=== PATIENT | female | born 1995 | race Caucasian/White ===

== ENCOUNTER 2017-06-01 07:18 | Day surgery (SDC) | payer BC ==
[~2017-06-01 07:18] MED LIST: DEXAMETHASONE SOD PHOSPHATE INJ 4 MG/1 ML VIAL ONE; FENTANYL CITRATE INJ/PF 100 MCG/2 ML AMPUL ONE; GLYCOPYRROLATE INJ 0.4 MG/2 ML VIAL ONE; LIDOCAINE 2% INJ-PF (20 MG/ML) 10 ML AMPUL ONE; MIDAZOLAM 2 MG/2 ML INJ ONE; ONDANSETRON HCL INJ/PF 4 MG/2 ML SDV ONE; PROPOFOL INJ 200 MG/20 ML VIAL IV ONE; SUCCINYLCHOLINE CHLORIDE INJ 200 MG/10 ML VIAL ONE
[2017-06-01] MEDS ORDERED: BUPIVACAINE HCL 0.5%-EPI 1:200000 INJ/PF 30 ML VIAL ONE (08:25)
[2017-06-01] MEDS ORDERED: OXYCODONE-ACETAMINOPHEN 5-325 MG TABLET ONE (09:52)
--- NOTE | 2017-06-02 13:33 | SURGICARE OPERATIVE REPORT E ---
[facility] Operative Report NAME: DACIA REYNA AGE: 22Y DATE OF SURGERY: 06/01/2017 ROOM: PREOPERATIVE DIAGNOSES: 1. Recurrent acute tonsillitis. 2. Chronic tonsillitis. 3. Tonsillar hypertrophy. POSTOPERATIVE DIAGNOSES: 1. Recurrent acute tonsillitis. 2. Chronic tonsillitis. 3. Tonsillar hypertrophy. OPERATION PERFORMED: Bilateral tonsillectomy, age greater than 12. SURGEON: JEWEL CAVANAUGH D.O. ANESTHETIC: General endotracheal tube. ANESTHESIA STAFF: ERICK ASTORGA CRNA. ESTIMATED BLOOD LOSS: 5 mL. FLUID: 550 mL. COMPLICATIONS: None. DRAINS: None. SPONGE COUNT: Verified. MATERIALS FORWARDED SPECIMEN: Left and right tonsillar tissue. FINDINGS: 1. The tonsils were noted to be 3+ in size bilaterally, were cryptic in nature, and were with tonsillar debris present bilaterally. 2. The soft palatal tissues were redundant in nature and the uvula was thickened in appearance. INDICATIONS: This is a 22-year-old white female who was seen and evaluated in the [facility]. The patient had been referred for a chief complaint of a longstanding history of multiple episodes of acute tonsillitis each year, treated with antibiotics over the years. The patient also complained of chronic tonsillitis symptoms over the years with history consistent with keratosis pharyngeus. The patient clinically was also noted to have tonsillar hypertrophy bilaterally. After extensive discussions with the patient, recommendations and plan was made to proceed with a tonsillectomy. The procedure and its risks and complications were all discussed in detail with the patient. She voiced understanding of the described treatment plan, agreed to proceed, and consent was obtained. PROCEDURE: The patient was taken to the main operating room and placed on the operating room table in the supine position. Appropriate monitors were placed. Using mask and IV access, general anesthesia was induced. The patient was next transorally intubated without difficulty. The patient was rotated 90 degrees and positioned for tonsil surgery. The patient's lips, teeth, tongue and inside of the mouth were inspected and noted to be without defects. There was a mouth gag inserted. It was opened, and the patient was placed into suspension. There was a soft catheter placed through the patient's nose that was used to suspend the soft palate. Findings are noted above. Marcaine with epinephrine was used as local anesthetic at the silas-tonsillar tissues bilater. At this point, the plasma knife was used to dissect and remove tonsillar tissue on each side. This device was also used to provide adequate hemostasis. Saline irritation was performed and suctioned. There was adequate hemostasis noted. The soft catheter was next released and removed from the patient's nose. The mouth gag was removed from the patient's mouth without difficulty. There was no damage to the lips, teeth, tongue, gums, or inside of the mouth. The patient was then returned to the anesthesia staff and was allowed to emerge from general anesthesia. The patient was extubated in the main operating room and was then transported to the post-anesthesia recovery unit in stable condition. There were no complications. DICTATING PHYSICIAN: JEWEL CAVANAUGH D.O. [id number] PHY#: [id number] ID: [id number] JOB#: [id number] ACCT: [id number] cc:JEWEL CAVANAUGH D.O. > MTDJerod
== END 2017-06-01 10:54 | disposition home or self-care (01) ==
LOC: SC 07:18
PROVIDERS: ATTEND Otolaryngology
PROC: 0CTPXZZ Resection of Tonsils, External Approach (ICD-10-PCS; principal; 2017-06-01 08:15)
DX: J35.01 Chronic tonsillitis (principal); J03.01 Acute recurrent streptococcal tonsillitis; J45.909 Unspecified asthma, uncomplicated; Z87.891 Personal history of nicotine dependence; Z79.51 Long term (current) use of inhaled steroids
CPT/HCPCS: 88304 ×2; 42826; J2250; J3490 ×2; J1100; J3010; J0330; J2405; J2704; 170

== ENCOUNTER 2017-06-05 07:26 | Emergency (ER) | payer BC ==
[2017-06-05] MEDS ORDERED: ONDANSETRON HCL INJ/PF 4 MG/2 ML SDV IV ONE (08:23)
[2017-06-05] MEDS ORDERED: NORMAL SALINE 1000 ML 1,000 ML IV ONE ×2 (08:23→09:40)
--- NOTE | 2017-06-05 08:29 | ER Document Report ---
ED General - General Chief Complaint: Vomiting Stated Complaint: THROAT PAIN AND VOMITING Time Seen by Provider: 06/05/17 08:10 TRAVEL OUTSIDE OF THE [place] IN LAST 30 DAYS: No - HPI Notes: Pt is a 22yo female who presents to the ED c/o sore throat, n/v, decreased oral intake x1 day. Pt states that she had a tonsilectomy on june 01, 4 days ago. pt states that the pain has somewhat increased over the last day. Pt was given oxycodone and a lidocaine spray to use for pain control. Pt is currently voluntarily non-verbal bc of pain. Pt states that she has been having trouble keeping liquids down bc of the nausea. The sore throat is b/l and not one side over the other. Patient denies any IV drug use. Denies any other recent illness. Patient states that she is allergic to Augmentin, but that just causes a GI upset. No other concerns or complaints at this time. Denies any headache, fever, neck pain, URI, chest pain, palpitations, syncope, cough, shortness of breath, wheeze, dyspnea, abdominal pain, nausea/vomiting/diarrhea, urinary retention, dysuria, hematuria, or rash. - Related Data Allergies/Adverse Reactions: clavulanic acid [From Augmentin] Adverse Reaction (Intermediate, Verified 07:31) Vomiting amoxicillin [From Augmentin] Adverse Reaction (Verified 06/05/17 07:31) Vomiting Past Medical History - Social History Smoking Status: Never Smoker Chew tobacco use (# tins/day): No Frequency of alcohol use: None Drug Abuse: None Family History: Reviewed & Not Pertinent Patient has suicidal ideation: No Patient has homicidal ideation: No - Past Medical History Cardiac Medical History: Denies: Hx Heart Attack, Hx Hypertension Pulmonary Medical History: Reports: Hx Asthma - EXERCISE INDUCED ASTHMA LAST TREATED 1 YEAR AGO Neurological Medical History: Denies: Hx Cerebrovascular Accident, Hx Seizures Renal/ Medical History: Denies: Hx Peritoneal Dialysis GI Medical History: Denies: Hx Hepatitis, Hx Hiatal Hernia, Hx Ulcer Infectious Medical History: Denies: Hx Hepatitis Past Surgical History: Reports: Hx Tonsillectomy. Denies: Hx Hysterectomy, Hx Mastectomy, Hx Open Heart Surgery, Hx Pacemaker Review of Systems - Review of Systems Notes: REVIEW OF SYSTEMS: CONSTITUTIONAL : Denies fever, chills, or sweats. Denies recent illness. EENT: see hpi. no eye complaints CARDIOVASCULAR: Denies chest pain. Denies palpitations or racing or irregular heart beat. RESPIRATORY: Denies cough, cold, or chest congestion. Denies shortness of breath, difficulty breathing, or wheezing. GASTROINTESTINAL: see hpi GENITOURINARY: Denies difficulty urinating, painful urination, burning, frequency, blood in urine, or discharge. MUSCULOSKELETAL: Denies back or neck pain or stiffness. Denies joint pain or swelling. SKIN: Denies rash, lesions or sores. NEUROLOGICAL: Denies confusion or altered mental status. Denies passing out or loss of consciousness. Denies dizziness or lightheadedness. Denies headache. Denies weakness or paralysis or loss of use of either side. Denies problems with gait or speech. Denies sensory loss, numbness, or tingling. ALL OTHER SYSTEMS REVIEWED AND NEGATIVE. Dictation was performed using [employer] voice recognition software Physical Exam - Vital signs Vitals: Temp Pulse Resp BP Pulse Ox 97.6 F 94 20 131/84 H 96 06/05/17 07:29 06/05/17 07:29 06/05/17 07:29 06/05/17 07:29 06/05/17 07:29 Notes: PHYSICAL EXAMINATION: GENERAL: Well-appearing, well-nourished and in no acute distress. A&Ox4 HEAD: Atraumatic, normocephalic. EYES: Pupils equal round and reactive to light, extraocular movements intact, sclera anicteric, conjunctiva are normal. ENT: EAC clear b/l. TM's intact b/l without erythema, fluid, or perforation. Nares patent and without discharge. oropharynx mild erythema noted without exudates. Tonsils absent with noted recent surgical findings (empty pockets, cauterized areas noted), no exudates or unilateral swelling. No palatine shift. Uvula midline. No tongue protrusion. Moist mucous membranes. No sinus tenderness. NECK: Normal range of motion, supple without lymphadenopathy. No rigidity/ meningismus. LUNGS: Breath sounds clear to auscultation bilaterally and equal. No wheezes rales or rhonchi. HEART: Regular rate and rhythm without murmurs, rubs, gallops. ABDOMEN: Soft, nontender, nondistended abdomen. No guarding, no rebound. No masses appreciated. Normal bowel sounds present. No CVA tenderness bilaterally. Musculoskeletal: FROM to passive/active. Strength 5+/5. Extremities: No cyanosis, clubbing, or edema b/l. Peripheral pulses 2+. Capillary refill less than 3 seconds. NEUROLOGICAL: Cranial nerves grossly intact. Normal speech, normal gait. Normal sensory, motor exams PSYCH: Normal mood, normal affect. SKIN: Warm, Dry, normal turgor, no rashes or lesions noted. Course - Re-evaluation Re-evalutation: 06/05/17 08:32 Patient is an afebrile, well-hydrated, 22-year-old female who presents the ED with a sore throat, nausea/vomiting status post tonsillectomy 4 days ago. I did speak with Dr. Cavanaugh who states that this is normal status post tonsillectomy and that the patient was very well educated on her symptoms and had a treat. He does recommend fluids, Zofran, and Decadron at this time with being sent home with an antinausea medication. He does not believe there is any other significant emergency at this time. He states that imaging is not warranted at this time. 06/05/17 10:29 Patient is verbalizing some words now has the pain has somewhat improved after the Decadron and Toradol. Patient is tolerating p.o. and has not vomited while in the ED. Again reviewed instructions per Dr. Cavanaugh for patient to take her at home pain regimen. Low suspicion for any meningitis, sepsis, peritonsillar/ pharyngeal abscess, respiratory compromise, Harjit's, or other emergent systemic condition at this time. Patient is aware this condition can change from initial presentation and she needs to monitor symptoms closely. I will send her home with a prescription for Zofran. Conservative measures otherwise for symptoms. Recheck with your PCM in 3-5 days. Consider follow-up with ENT for ongoing/worsening symptoms as well. Return to the ED with any worsening/ concerning symptoms otherwise as reviewed in discharge. Patient is in agreement. - Vital Signs Vital signs: Temp Pulse Resp BP Pulse Ox 97.2 F 74 16 127/59 H 100 06/05/17 11:35 06/05/17 11:35 06/05/17 11:35 06/05/17 11:35 06/05/17 11:35 - Laboratory Result Diagrams: 06/05/17 08:44 06/05/17 08:44 Laboratory results interpreted by me: 06/05/17 06/05/17 08:44 08:44 WBC 11.9 H MCV 77 L MCH 24.9 L RDW 15.5 H Seg Neutrophils % 80.5 H Lymphocytes % 11.9 L Absolute Neutrophils 9.5 H BUN 5 L Direct Bilirubin 0.5 H Total Protein 9.1 H Discharge - Discharge Clinical Impression: Post-tonsillectomy pain Nausea and vomiting Qualifiers: Vomiting type: unspecified Vomiting Intractability: non-intractable Qualified Code(s): R11.2 - Nausea with vomiting, unspecified Condition: Stable Disposition: HOME, SELF-CARE Instructions: Antinausea Medication ([facility]), Intravenous (IV) Fluids ([facility]), Vomiting ([facility]) Additional Instructions: Maintain adequate fluid intake Take meds as directed use throat spray and take pain medication as prescribed/directed by Dr. Cavanaugh. tylenol/ibuprofen as needed F/u: with your PCM in 3-5 days for a recheck Consider consult with ENT for ongoing/worsening symptoms Return to the ED with any fever, worsening pain, chest pain, neck pain/stiffness , shortness of breath, cough, drooling, trouble swallowing/breathing, abdominal pain, n/v/d, rash, or worsening/concerning symptoms otherwise. Prescriptions: Ondansetron [Zofran Odt 4 mg Tablet] 1 - 2 tab PO Q4H PRN #15 tab.rapdis PRN Reason: For Nausea/Vomiting Forms: Elevated Blood Pressure Referrals: JEWEL CAVANAUGH DO [ASSOCIATE] - Follow up as needed
[2017-06-05 09:05] LABS: ABSOLUTE BASOPHILS # (AUTO) 0.1 10^3/uL (0.0-0.2); ABSOLUTE EOSINOPHILS # (AUTO) 0.1 10^3/uL (0.0-0.6); ABSOLUTE LYMPHOCYTES (AUTO) 1.4 10^3/uL (0.5-4.7); ABSOLUTE MONOCYTES (AUTO) 0.8 10^3/uL (0.1-1.4); ABSOLUTE NEUT (AUTO) 9.5 10^3/uL (1.7-8.2); BASOPHILS % (AUTO) 0.5 % (0-2); EOSINOPHILS % (AUTO) 0.6 % (0-6); HEMATOCRIT 38.5 % (36.0-47.0); HEMOGLOBIN 12.5 g/dL (12.0-15.5); LYMPHOCYTES % (AUTO) 11.9 % (13-45); MEAN CORPUSCULAR HEMOGLOBIN 24.9 pg (27.0-33.4); MEAN CORPUSCULAR HGB CONC 32.5 g/dL (32.0-36.0); MEAN CORPUSCULAR VOLUME 77 fl (80-97); MONOCYTES % (AUTO) 6.5 % (3-13); RED BLOOD COUNT 5.02 10^6/uL (3.72-5.28); RED CELL DISTRIBUTION WIDTH 15.5 % (11.5-14.0); SEGMENTED NEUTROPHILS % (AUTO) 80.5 % (42-78); WHITE BLOOD COUNT 11.9 10^3/uL (4.0-10.5)
[2017-06-05 09:20] LABS: ALANINE AMINOTRANSFERASE 24 U/L (9-52); ALBUMIN 4.8 g/dL (3.5-5.0); ALKALINE PHOSPHATASE 78 U/L (38-126); ANION GAP 16 (5-19); ASPARTATE AMINO TRANSFERASE 23 U/L (14-36); BILIRUBIN,DIRECT 0.5 mg/dL (0.0-0.4); BILIRUBIN,TOTAL 0.7 mg/dL (0.2-1.3); BLOOD UREA NITROGEN 5 mg/dL (7-20); CALCIUM 9.7 mg/dL (8.4-10.2); CARBON DIOXIDE 22 mmol/L (22-30); CHLORIDE 103 mmol/L (98-107); CREATININE RESULT 0.54 mg/dL (0.52-1.25); GLUCOSE 84 mg/dL (75-110); SODIUM 140.6 mmol/L (137-145); TOTAL PROTEIN 9.1 g/dL (6.3-8.2)
[2017-06-05] MEDS ORDERED: KETOROLAC TROMETHAMINE INJ/PF 30 MG/1 ML SDV IV ONE (10:22)
[2017-06-05] MEDS ORDERED: DEXAMETHASONE SOD PHOS INJ 10 MG/1 ML VIAL IM ONE (10:57)
[2017-06-05 11:41] VITALS: BP 127/59
== END 2017-06-05 11:41 | disposition home or self-care (01) ==
LOC: ER 07:26
DX: G89.18 Other acute postprocedural pain (principal); J02.9 Acute pharyngitis, unspecified; R11.2 Nausea with vomiting, unspecified; Z98.890 Other specified postprocedural states
CPT/HCPCS: 99283; 96372; 96361; 96374; 96375; 36415; 85025; 80053; J1885; J2405; J7030; J1100

== ENCOUNTER 2017-08-10 18:48 | Emergency (ER) | payer BC ==
[2017-08-10] MEDS ORDERED: ONDANSETRON 4 MG TAB.RAPDIS PO ONE (20:13)
[2017-08-10] MEDS ORDERED: HYDROCODONE/ACETAMINOPHEN 5-325 MG TABLET PO ONE (20:13)
--- NOTE | 2017-08-10 20:14 | ER Document Report ---
ED Medical Screen (RME) - General Chief Complaint: Abdominal Pain Stated Complaint: PELVIC PAIN Time Seen by Provider: 08/10/17 20:00 Mode of Arrival: Ambulatory Information source: Patient Notes: 22-year-old female history of ovarian cysts presents with complaints of 2 month duration of intermittent right lower quadrant pain. Patient denies any fevers or chills I have greeted and performed a rapid initial assessment of this patient. A comprehensive ED assessment and evaluation of the patient, analysis of test results and completion of the medical decision making process will be conducted by additional ED providers. PHYSICAL EXAMINATION: GENERAL: Well-appearing, well-nourished and in no acute distress. HEAD: Atraumatic, normocephalic. EYES: Pupils equal round extraocular movements intact, conjunctiva are normal. ENT: Nares patent NECK: Normal range of motion LUNGS: No respiratory distress Musculoskeletal: Normal range of motion NEUROLOGICAL: Normal speech, normal gait. PSYCH: Normal mood, normal affect. SKIN: Warm, Dry, normal turgor, no rashes or lesions noted. TRAVEL OUTSIDE OF THE [place] IN LAST 30 DAYS: No - Related Data Allergies/Adverse Reactions: clavulanic acid [From Augmentin] Adverse Reaction (Intermediate, Verified 18:49) Vomiting amoxicillin [From Augmentin] Adverse Reaction (Verified 08/10/17 18:49) Vomiting Home Medications: Current Home Medications Lorazepam [Ativan 0.5 mg Tablet] 0.5 mg PO Q4 PRN 08/10/17 [History] Past Medical History - Social History Chew tobacco use (# tins/day): No Frequency of alcohol use: Occasional Drug Abuse: None - Past Medical History Cardiac Medical History: Denies: Hx Heart Attack, Hx Hypertension Pulmonary Medical History: Reports: Hx Asthma - EXERCISE INDUCED ASTHMA LAST TREATED 1 YEAR AGO Neurological Medical History: Denies: Hx Cerebrovascular Accident, Hx Seizures Renal/ Medical History: Denies: Hx Peritoneal Dialysis GI Medical History: Denies: Hx Hepatitis, Hx Hiatal Hernia, Hx Ulcer Psychiatric Medical History: Reports: Hx Depression Infectious Medical History: Denies: Hx Hepatitis Past Surgical History: Reports: Hx Cholecystectomy, Hx Oral Surgery - wisdom surgery, Hx Tonsillectomy. Denies: Hx Hysterectomy, Hx Mastectomy, Hx Open Heart Surgery, Hx Pacemaker Physical Exam - Vital signs Vitals: Temp Pulse Resp BP Pulse Ox 98.2 F 89 18 142/91 H 100 08/10/17 19:01 08/10/17 19:01 08/10/17 19:01 08/10/17 19:01 08/10/17 19:01 Course - Vital Signs Vital signs: Temp Pulse Resp BP Pulse Ox 98.2 F 89 18 142/91 H 100 08/10/17 19:01 08/10/17 19:01 08/10/17 19:01 08/10/17 19:01 08/10/17 19:01
[2017-08-10 20:28] LABS: ABSOLUTE BASOPHILS # (AUTO) 0.1 10^3/uL (0.0-0.2); ABSOLUTE EOSINOPHILS # (AUTO) 0.1 10^3/uL (0.0-0.6); ABSOLUTE LYMPHOCYTES (AUTO) 2.1 10^3/uL (0.5-4.7); ABSOLUTE MONOCYTES (AUTO) 0.5 10^3/uL (0.1-1.4); ABSOLUTE NEUT (AUTO) 6.5 10^3/uL (1.7-8.2); BASOPHILS % (AUTO) 0.9 % (0-2); EOSINOPHILS % (AUTO) 0.6 % (0-6); HEMOGLOBIN 13.1 g/dL (12.0-15.5); LYMPHOCYTES % (AUTO) 22.4 % (13-45); MEAN CORPUSCULAR HEMOGLOBIN 25.5 pg (27.0-33.4); MEAN CORPUSCULAR HGB CONC 32.8 g/dL (32.0-36.0); MEAN CORPUSCULAR VOLUME 78 fl (80-97); MONOCYTES % (AUTO) 5.8 % (3-13); PLATELET COUNT 379 10^3/uL (150-450); RED BLOOD COUNT 5.14 10^6/uL (3.72-5.28); RED CELL DISTRIBUTION WIDTH 15.3 % (11.5-14.0); SEGMENTED NEUTROPHILS % (AUTO) 70.3 % (42-78); TOTAL CELLS COUNTED % (AUTO) 100 %; WHITE BLOOD COUNT 9.3 10^3/uL (4.0-10.5)
[2017-08-10 20:42] LABS: ALANINE AMINOTRANSFERASE 31 U/L (9-52); ALKALINE PHOSPHATASE 79 U/L (38-126); ANION GAP 13 (5-19); ASPARTATE AMINO TRANSFERASE 23 U/L (14-36); BILIRUBIN,DIRECT 0.2 mg/dL (0.0-0.4); BILIRUBIN,TOTAL 0.8 mg/dL (0.2-1.3); BLOOD UREA NITROGEN 6 mg/dL (7-20); CALCIUM 10.6 mg/dL (8.4-10.2); CARBON DIOXIDE 27 mmol/L (22-30); CHLORIDE 104 mmol/L (98-107); GLUCOSE 87 mg/dL (75-110); POTASSIUM 3.8 mmol/L (3.6-5.0); SODIUM 144.3 mmol/L (137-145); TOTAL PROTEIN 8.2 g/dL (6.3-8.2)
[2017-08-10 20:57] LABS: APPEARANCE,URINE CLEAR; BILIRUBIN,URINE NEGATIVE (NEGATIVE); COLOR,URINE YELLOW; GLUCOSE, URINE NEGATIVE (NEGATIVE); KETONES,URINE TRACE mg/dL (NEGATIVE); LEUKOCYTE ESTERASE,URINE NEGATIVE (NEGATIVE); NITRITE,URINE NEGATIVE (NEGATIVE); PROTEIN,URINE NEGATIVE (NEGATIVE); URINE SPECIFIC GRAVITY 1.008; UROBILINOGEN,URINE NEGATIVE mg/dL (<2.0)
--- NOTE | 2017-08-10 21:06 | ER Document Report ---
ED GI/ - General Chief Complaint: Abdominal Pain Stated Complaint: PELVIC PAIN Time Seen by Provider: 08/10/17 20:00 Mode of Arrival: Ambulatory Notes: Patient is a 22-year-old female comes emergency department for chief complaint of lower abdominal pain, worse in the right pelvic area, pain is been intermittent for several weeks but tonight became much more sharp. She reports a history of ovarian cysts. She denies nausea or vomiting, fever chills, dysuria, vaginal discharge. She reports some lower back discomfort as well. She denies concerns of STD. Past medical history of anxiety, medicated for this. She has had a cholecystectomy. TRAVEL OUTSIDE OF THE [place] IN LAST 30 DAYS: No - Related Data Allergies/Adverse Reactions: clavulanic acid [From Augmentin] Adverse Reaction (Intermediate, Verified 18:49) Vomiting amoxicillin [From Augmentin] Adverse Reaction (Verified 08/10/17 18:49) Vomiting Home Medications: Current Home Medications Lorazepam [Ativan 0.5 mg Tablet] 0.5 mg PO Q4 PRN 08/10/17 [History] Past Medical History - General Information source: Patient - Social History Smoking Status: Current Some Day Smoker Chew tobacco use (# tins/day): No Frequency of alcohol use: Occasional Drug Abuse: None Lives with: Family Family History: Reviewed & Not Pertinent Patient has suicidal ideation: No Patient has homicidal ideation: No - Past Medical History Cardiac Medical History: Denies: Hx Heart Attack, Hx Hypertension Pulmonary Medical History: Reports: Hx Asthma - EXERCISE INDUCED ASTHMA LAST TREATED 1 YEAR AGO Neurological Medical History: Denies: Hx Cerebrovascular Accident, Hx Seizures Renal/ Medical History: Denies: Hx Peritoneal Dialysis GI Medical History: Denies: Hx Hepatitis, Hx Hiatal Hernia, Hx Ulcer Psychiatric Medical History: Reports: Hx Depression Infectious Medical History: Denies: Hx Hepatitis Past Surgical History: Reports: Hx Cholecystectomy, Hx Oral Surgery - wisdom surgery, Hx Tonsillectomy. Denies: Hx Hysterectomy, Hx Mastectomy, Hx Open Heart Surgery, Hx Pacemaker Review of Systems - Review of Systems Constitutional: No symptoms reported EENT: No symptoms reported Cardiovascular: No symptoms reported Respiratory: No symptoms reported Gastrointestinal: See HPI Genitourinary: No symptoms reported Female Genitourinary: See HPI Musculoskeletal: No symptoms reported Skin: No symptoms reported Hematologic/Lymphatic: No symptoms reported Neurological/Psychological: No symptoms reported Physical Exam - Vital signs Vitals: Temp Pulse Resp BP Pulse Ox 98.2 F 89 18 142/91 H 100 08/10/17 19:01 08/10/17 19:01 08/10/17 19:01 08/10/17 19:01 08/10/17 19:01 Interpretation: Normal - General General appearance: Appears well, Alert In distress: None - HEENT Head: Normocephalic, Atraumatic Eyes: Normal Pupils: PERRL - Respiratory Respiratory status: No respiratory distress Chest status: Nontender Breath sounds: Normal Chest palpation: Normal - Cardiovascular Rhythm: Regular Heart sounds: Normal auscultation Murmur: No - Abdominal Inspection: Normal Distension: No distension Bowel sounds: Normal Tenderness: Nontender. No: Tender, Guarding Organomegaly: No organomegaly - Back Back: Normal, Nontender. No: Tender - Extremities General upper extremity: Normal inspection, Nontender, Normal color, Normal ROM , Normal temperature General lower extremity: Normal inspection, Nontender, Normal color, Normal ROM , Normal temperature, Normal weight bearing. No: Loren's sign - Neurological Neuro grossly intact: Yes Cognition: Normal Orientation: AAOx4 Amada Coma Scale Eye Opening: Spontaneous Amada Coma Scale Verbal: Oriented Amada Coma Scale Motor: Obeys Commands [place] Coma Scale Total: 15 Speech: Normal Motor strength normal: LUE, RUE, LLE, RLE Sensory: Normal - Psychological Associated symptoms: Normal affect, Normal mood - Skin Skin Temperature: Warm Skin Moisture: Dry Skin Color: Normal Course - Re-evaluation Re-evalutation: CBC, chemistry, urinalysis are all unremarkable. Patient has no noted abdominal tenderness on my exam. She is alert and well-appearing. Vital signs unremarkable. Discussed pelvic examination but this was declined. Ultrasound showing fluid in the cervix area. Suspect this is a cyst. Discussed with patient, advised that I could explain more about what the ultrasound shows on pelvic exam, she declines, she states she wants to go to OB/ [facility] to have additional evaluation, I feel this is appropriate on request because she will likely need to follow-up with [facility] regardless especially if there is an abnormality with the cervix that potentially needs to be managed. Patient states that she will definitely go to [facility] if she gets referral, referral was given. Discussed return precautions. Patient states understanding and agreement. - Vital Signs Vital signs: Temp Pulse Resp BP Pulse Ox 97.6 F 57 L 18 121/56 L 100 08/10/17 23:55 08/10/17 23:55 08/10/17 23:55 08/10/17 23:55 08/10/17 23:55 - Laboratory Result Diagrams: 08/10/17 20:18 08/10/17 20:18 Laboratory results interpreted by me: 08/10/17 08/10/17 08/10/17 20:18 20:18 20:37 MCV 78 L MCH 25.5 L RDW 15.3 H BUN 6 L Calcium 10.6 H Urine Ketones TRACE H Discharge - Discharge Clinical Impression: Lower abdominal pain Condition: Stable Disposition: HOME, SELF-CARE Additional Instructions: Your laboratory workup does not show any concerning abnormality's, your test is negative. Your ultrasound is normal except for unidentified fluid in the cervix. Please follow-up closely with [facility] (see and call referral) to have additional evaluation and management. Return if you worsen including severe pain, fever, vomiting, or any other concerning symptoms. Prescriptions: Ketorolac Tromethamine [Toradol 10 mg Tablet] 10 mg PO Q8HP PRN #24 tablet PRN Reason: Referrals: [facility] [Provider Group] - 08/13/17
--- NOTE | 2017-08-10 21:46 | RADIOLOGY REPORT (SQ) ---
EXAM DESCRIPTION: U/S NON OB PEL TV W/DOPPLER COMPLETED DATE/TIME: 08/10/2017 9:34 pm REASON FOR STUDY: RLQ pain, hx ovarian cysts COMPARISON: None. TECHNIQUE: Dynamic and static grayscale images acquired of the pelvis via transvaginal approach and recorded on PACS. Additional selected color Doppler and spectral images recorded. LIMITATIONS: None. FINDINGS: UTERUS: Contour normal. No mass. ENDOMETRIAL STRIPE: No focal or generalized thickening. No masses. CERVIX: Fluid within the cervix. RIGHT OVARY: Not visualized LEFT OVARY: Not visualized FREE FLUID: None noted. OTHER: No other significant finding. MEASUREMENTS: UTERUS: 6.5 x 2.7 x 3.6 cm ENDOMETRIAL STRIPE: 8 mm RIGHT OVARY: Not visualized. LEFT OVARY: Not visualized. IMPRESSION: Fluid in the cervix. Otherwise normal as visualized. TECHNICAL DOCUMENTATION: JOB ID: [id number] [employer]- All Rights Reserved
[2017-08-10] MEDS ORDERED: HYDROCODONE/ACETAMINOPHEN 5-325 MG (6 TAB/ER DISP) PO PRN (23:45)
[2017-08-11 00:07] VITALS: BP 121/56
== END 2017-08-11 00:09 | disposition home or self-care (01) ==
LOC: ER 18:48
DX: R10.30 Lower abdominal pain, unspecified (principal); R10.2 Pelvic and perineal pain; F17.200 Nicotine dependence, unspecified, uncomplicated; Z88.0 Allergy status to penicillin; Z90.49 Acquired absence of other specified parts of digestive tract
CPT/HCPCS: 99284; 36415; 85025; 81025; 80053; 81001; 76830; 93976; S0119

== ENCOUNTER 2018-06-19 20:59 | Emergency (ER) | payer BC ==
[2018-06-19 21:35] LABS: APPEARANCE,URINE SLIGHTLY-CLOUDY; BILIRUBIN,URINE NEGATIVE (NEGATIVE); COLOR,URINE YELLOW; GLUCOSE, URINE NEGATIVE (NEGATIVE); KETONES,URINE NEGATIVE (NEGATIVE); LEUKOCYTE ESTERASE,URINE TRACE (NEGATIVE); NITRITE,URINE NEGATIVE (NEGATIVE); PROTEIN,URINE NEGATIVE (NEGATIVE); UROBILINOGEN,URINE NEGATIVE mg/dL (<2.0)
[2018-06-19 21:45] LABS: ABSOLUTE BASOPHILS # (AUTO) 0.1 10^3/uL (0.0-0.2); ABSOLUTE EOSINOPHILS # (AUTO) 0.1 10^3/uL (0.0-0.6); ABSOLUTE LYMPHOCYTES (AUTO) 2.1 10^3/uL (0.5-4.7); ABSOLUTE MONOCYTES (AUTO) 0.5 10^3/uL (0.1-1.4); ABSOLUTE NEUT (AUTO) 5.9 10^3/uL (1.7-8.2); BASOPHILS % (AUTO) 0.8 % (0-2); EOSINOPHILS % (AUTO) 0.8 % (0-6); HEMATOCRIT 37.5 % (36.0-47.0); HEMOGLOBIN 12.7 g/dL (12.0-15.5); LYMPHOCYTES % (AUTO) 24.4 % (13-45); MEAN CORPUSCULAR HEMOGLOBIN 25.8 pg (27.0-33.4); MEAN CORPUSCULAR HGB CONC 33.7 g/dL (32.0-36.0); MEAN CORPUSCULAR VOLUME 77 fl (80-97); MONOCYTES % (AUTO) 5.9 % (3-13); PLATELET COUNT 305 10^3/uL (150-450); RED CELL DISTRIBUTION WIDTH 14.7 % (11.5-14.0); SEGMENTED NEUTROPHILS % (AUTO) 68.1 % (42-78); TOTAL CELLS COUNTED % (AUTO) 100 %; WHITE BLOOD COUNT 8.6 10^3/uL (4.0-10.5)
[2018-06-19 22:06] LABS: ALANINE AMINOTRANSFERASE 26 U/L (9-52); ALBUMIN 4.6 g/dL (3.5-5.0); ALKALINE PHOSPHATASE 59 U/L (38-126); ANION GAP 11 (5-19); ASPARTATE AMINO TRANSFERASE 23 U/L (14-36); BILIRUBIN,DIRECT 0.2 mg/dL (0.0-0.4); BILIRUBIN,TOTAL 0.8 mg/dL (0.2-1.3); BLOOD UREA NITROGEN 10 mg/dL (7-20); CALCIUM 9.9 mg/dL (8.4-10.2); CARBON DIOXIDE 29 mmol/L (22-30); CHLORIDE 103 mmol/L (98-107); GLUCOSE 84 mg/dL (75-110); LIPASE 145.7 U/L (23-300); SODIUM 143.2 mmol/L (137-145)
[2018-06-19] MEDS ORDERED: ONDANSETRON HCL INJ/PF 4 MG/2 ML SDV IV ONE (22:12)
[2018-06-19] MEDS ORDERED: NORMAL SALINE 1000 ML 1,000 ML IV ONE (22:12)
[2018-06-19] MEDS ORDERED: KETOROLAC TROMETHAMINE INJ/PF 30 MG/1 ML SDV IV ONE (22:12)
--- NOTE | 2018-06-19 22:14 | ER Document Report ---
ED General - General Chief Complaint: Abdominal Pain Stated Complaint: ABDOMINAL PAIN Time Seen by Provider: 06/19/18 22:04 Notes: Patient is a 23-year-old female that comes to the emergency department for chief complaint of vomiting and lower abdominal pain. Patient states she vomited 3 times, got up and passed out face down on the floor, states that after hitting the floor she has some pain across the center of her chest, she denies headache, focal numbness or weakness. She has vomited a total of 5 times today reportedly. She states she has had lower abdominal pain and vomiting for the past 5 days. She denies vaginal discharge or bleeding, dysuria , she states she had a fever of 101 yesterday. She has had a cholecystectomy, past medical history includes asthma, anxiety, only home medication is Xanax. TRAVEL OUTSIDE OF THE [place] IN LAST 30 DAYS: No - Related Data Allergies/Adverse Reactions: clavulanic acid [From Augmentin] Adverse Reaction (Intermediate, Verified 18:49) Vomiting amoxicillin [From Augmentin] Adverse Reaction (Verified 08/10/17 18:49) Vomiting Past Medical History - General Information source: Patient - Social History Smoking Status: Never Smoker Frequency of alcohol use: None Drug Abuse: None Lives with: Family Family History: Reviewed & Not Pertinent - Past Medical History Cardiac Medical History: Denies: Hx Heart Attack, Hx Hypertension Pulmonary Medical History: Reports: Hx Asthma - EXERCISE INDUCED ASTHMA LAST TREATED 1 YEAR AGO Neurological Medical History: Denies: Hx Cerebrovascular Accident, Hx Seizures Renal/ Medical History: Reports: Hx Ovarian Cysts. Denies: Hx Peritoneal Dialysis GI Medical History: Denies: Hx Hepatitis, Hx Hiatal Hernia, Hx Ulcer Psychiatric Medical History: Reports: Hx Depression Infectious Medical History: Denies: Hx Hepatitis Past Surgical History: Reports: Hx Cholecystectomy, Hx Oral Surgery - wisdom surgery, Hx Tonsillectomy. Denies: Hx Hysterectomy, Hx Mastectomy, Hx Open Heart Surgery, Hx Pacemaker - Immunizations Immunizations up to date: Yes Hx Diphtheria, Pertussis, Tetanus Vaccination: Yes Review of Systems - Review of Systems Constitutional: See HPI EENT: No symptoms reported Cardiovascular: See HPI Respiratory: No symptoms reported Gastrointestinal: See HPI Genitourinary: No symptoms reported Female Genitourinary: No symptoms reported Musculoskeletal: See HPI Skin: No symptoms reported Hematologic/Lymphatic: No symptoms reported Neurological/Psychological: See HPI Physical Exam - Vital signs Vitals: Temp Pulse Resp BP Pulse Ox 98.1 F 71 16 139/74 H 100 06/19/18 20:59 06/19/18 20:59 06/19/18 20:59 06/19/18 20:59 06/19/18 20:59 - Notes Notes: GENERAL: Alert, interacts well. No acute distress. HEAD: Normocephalic, atraumatic. EYES: Pupils equal, round, and reactive to light. Extraocular movements intact. ENT: Oral mucosa moist, tongue midline. Oropharynx unremarkable. Airway patent. Nares patent, no nasal septal hematoma, TM's intact. NECK: Full range of motion. Supple. Trachea midline. LUNGS: Clear to auscultation bilaterally, no wheezes, rales, or rhonchi. No respiratory distress. Minimal tenderness over the mid chest, no bruising, full range of motion, normal breathes without pain, otherwise unremarkable exam. HEART: Regular rate and rhythm. No murmur ABDOMEN: Soft, non-tender. Non-distended. Bowel sounds present in all 4 quadrants. GENITOURINARY: External exam with no concerning findings, speculum exam showing moderate amount of whitish discharge, no lesions, no cervical motion tenderness , otherwise unremarkable. Alana RN present during exam. EXTREMITIES: Moves all 4 extremities spontaneously. No edema, normal radial and dorsalis pedis pulses bilaterally. No cyanosis. BACK: no cervical, thoracic, lumbar midline tenderness. No saddle anesthesia, normal distal neurovascular exam. NEUROLOGICAL: Alert and oriented x3. Normal speech. [cranial nerves II through XII grossly intact]. PSYCH: Normal affect, normal mood. SKIN: Warm, dry, normal turgor. No rashes or lesions noted. Course - Re-evaluation Re-evalutation: Patient has bilateral pelvic pain, slightly worse on the left,, no guarding. She is well-appearing. She reports vomiting and passing out, she is very talkative and alert. Vital signs unremarkable. EKG sinus rhythm with normal [place] interval and no acute findings. Chest x-ray unremarkable. No signs of trauma over the chest or face. Unremarkable back and neck exam. CBC, chemistry, urinalysis unremarkable, hCG is negative. Pelvic exam showing moderate amount of discharge, 3+ bacteria, otherwise unremarkable. No pelvic inflammatory disease or STDs. Treating for bacterial vaginosis. Ultrasound was performed because of left lower quadrant pain, vomiting, history of ovarian cyst, however this did not visualize the ovaries, as result I have low suspicion of any large cyst, mass, abscess on the ovaries that would cause torsion. Unremarkable exam. Patient tolerating p.o. without difficulty. Discussed different possibilities of her symptoms, workup, and plan with patient. Patient will be discharged at this time with symptom management, treatment for bacterial vaginosis, follow-up instructions, and return precautions. Patient states understanding and agreement. - Vital Signs Vital signs: Temp Pulse Resp BP Pulse Ox 98.6 F 64 18 122/65 100 06/20/18 01:56 06/20/18 01:56 06/20/18 01:56 06/20/18 01:56 06/20/18 01:56 - Laboratory Result Diagrams: 06/19/18 21:35 06/19/18 21:35 Laboratory results interpreted by me: 06/19/18 06/19/18 21:12 21:35 MCV 77 L MCH 25.8 L RDW 14.7 H Ur Leukocyte Esterase TRACE H Discharge - Discharge Clinical Impression: Lower abdominal pain, Vaginal discharge, Chest wall pain Vomiting Qualifiers: Vomiting type: unspecified Vomiting Intractability: non-intractable Nausea presence: with nausea Qualified Code(s): R11.2 - Nausea with vomiting, unspecified Episode of syncope Qualifiers: Syncope type: unspecified Qualified Code(s): R55 - Syncope and collapse Condition: Stable Disposition: HOME, SELF-CARE Additional Instructions: You have been rehydrated, your evaluation indicates bacterial vaginosis, and no other concerning findings are noted on x-ray, laboratory workup, ultrasound. Take Zofran and Pepcid, you may have a resolving virus and some remaining inflammation of the upper abdominal tract, start with bland food and slowly progress. Your workup also indicates bacterial vaginosis infection. Take flagyl as prescribed. See additional instructions below. Return if you worsen including fever of 100.4 or greater, severe abdominal pain, uncontrolled vomiting, or any other concerning or worsening symptoms. Syncopal Episode Syncope (fainting or near-fainting) can occur from many different health problems. Or it can be a simple fainting spell requiring no treatment. It is safe for you to go home, but further evaluation will likely be necessary. Your work-up may include tests for internal bleeding, heart disease, medication problems, or near-strokes. Tests are not always required, however, depending on the nature of your problem. The warning signs of an impending faint include: dizziness, lightheadedness , nausea, hot flashes, tingling, and weakness. If this happens, lay down and put your feet up, then wait until all of these symptoms have passed before standing up again. If these episodes become recurrent, or if you develop chest pain, heart palpitations, mental confusion, blurred vision, or headache, then you should call the physician, or go to the emergency room. Prescriptions: Metronidazole [Flagyl 500 mg Tablet] 500 mg PO BID #14 tablet Ondansetron [Zofran Odt 4 mg Tablet] 1 - 2 tab PO Q4H PRN #15 tab.rapdis PRN Reason: For Nausea/Vomiting Forms: Return to Work Referrals: PARKER SRIVASTAVA FNP [NO LOCAL MD] - Follow up as needed
--- NOTE | 2018-06-19 22:39 | RADIOLOGY REPORT (SQ) ---
EXAM DESCRIPTION: XR CHEST 1 VIEW COMPLETED DATE/TME: 06/19/2018 22:12 CLINICAL HISTORY: 23 years, Female, chest pain Findings: The heart is not enlarged. Lungs are clear. No consolidation or pleural effusion. No pulmonary edema or pneumothorax. IMPRESSION: No acute disease.
[2018-06-19 23:29] LABS: T.VAGINALIS (WET MOUNT) NO TRICHOMONAS SEEN
[2018-06-19 23:30] LABS: BACTERIA (WET MOUNT) 3+ BACTERIA SEEN; RBCS (WET MOUNT) RARE RBCS SEEN; WBCS (WET MOUNT) NO WBCS SEEN; YEAST (WET MOUNT) NO YEAST SEEN
[2018-06-19] MEDS ORDERED: MORPHINE SULFATE 10 MG/ML INJ IV ONE (23:35)
--- NOTE | 2018-06-20 00:36 | RADIOLOGY REPORT (SQ) ---
EXAM DESCRIPTION: CLINICAL HISTORY: 23 years Female LLQ pain, vomiting COMPARISON: None. TECHNIQUE: Transabdominal and transvaginal duplex imaging performed to evaluate the pelvis. FINDINGS: Uterus measures 6.9 x 3.5 cm. Endometrial stripe 8 mm. Cervix is closed. Neither ovary is visualized on transabdominal or transvaginal imaging secondary to bowel gas. IMPRESSION: Neither ovary is visualized. Bowel gas Otherwise unremarkable pelvic ultrasound
[2018-06-20 00:54] LABS: CHLAM PCR NOT DETECTED (NOT DETECT); GON PCR NOT DETECTED (NOT DETECT)
[2018-06-20] MEDS ORDERED: METRONIDAZOLE 500 MG TABLET PO ONE (01:29)
[2018-06-20] MEDS ORDERED: ONDANSETRON ODT 4 MG TAB (6 TAB/ER DISP) PO PRN (01:29)
[2018-06-20 02:02] VITALS: BP 122/65
--- NOTE | 2018-06-21 10:47 | EKG REPORT ---
SEVERITY:- NORMAL ECG - SINUS RHYTHM : Confirmed by: Ayah Gutiérrez 21-Jun-2018 10:46:31
== END 2018-06-20 02:03 | disposition home or self-care (01) ==
LOC: ER 20:59
DX: N76.0 Acute vaginitis (principal); B96.89 Other specified bacterial agents as the cause of diseases classified elsewhere; R10.2 Pelvic and perineal pain; R10.32 Left lower quadrant pain; R55 Syncope and collapse; R07.9 Chest pain, unspecified; W19.XXXA Unspecified fall, initial encounter; R11.2 Nausea with vomiting, unspecified; J45.909 Unspecified asthma, uncomplicated; F41.9 Anxiety disorder, unspecified; Z79.899 Other long term (current) drug therapy; Z87.42 Personal history of other diseases of the female genital tract; Z90.49 Acquired absence of other specified parts of digestive tract
CPT/HCPCS: 93005; 99285; 96361; 96374; 96375; 36415; 87210; 83690; 85025; 81025; 80053; 81001; 87491; 87591; 71045; 76830; 93976; 93010; J1885; J2270; J2405; J7030

== ENCOUNTER 2018-08-06 11:53 | Emergency (ER) | payer OTHER, BC ==
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
[2018-08-06] MEDS ORDERED: AZITHROMYCIN 1 GM SUSP PACKET PO ONE (15:30)
[2018-08-06] MEDS ORDERED: PROMETHAZINE HCL 25 MG TABLET PO ONE (15:30)
[2018-08-06] MEDS ORDERED: PROMETHAZINE HCL 25 MG TABLET ONE (15:33)
[2018-08-06] MEDS ORDERED: AZITHROMYCIN 250 MG TABLET ONE (15:34)
[2018-08-06] MEDS ORDERED: CEFTRIAXONE INJ 500 MG VIAL ONE (15:36)
[2018-08-06 15:43] LABS: ABSOLUTE BASOPHILS # (AUTO) 0.1 10^3/uL (0.0-0.2); ABSOLUTE LYMPHOCYTES (AUTO) 1.6 10^3/uL (0.5-4.7); ABSOLUTE MONOCYTES (AUTO) 0.4 10^3/uL (0.1-1.4); ABSOLUTE NEUT (AUTO) 3.8 10^3/uL (1.7-8.2); BASOPHILS % (AUTO) 1.1 % (0-2); EOSINOPHILS % (AUTO) 0.4 % (0-6); HEMATOCRIT 36.2 % (36.0-47.0); HEMOGLOBIN 12.2 g/dL (12.0-15.5); LYMPHOCYTES % (AUTO) 27.7 % (13-45); MEAN CORPUSCULAR HEMOGLOBIN 26.2 pg (27.0-33.4); MEAN CORPUSCULAR HGB CONC 33.6 g/dL (32.0-36.0); MEAN CORPUSCULAR VOLUME 78 fl (80-97); MONOCYTES % (AUTO) 7.4 % (3-13); PLATELET COUNT 281 10^3/uL (150-450); RED BLOOD COUNT 4.65 10^6/uL (3.72-5.28); RED CELL DISTRIBUTION WIDTH 14.8 % (11.5-14.0); SEGMENTED NEUTROPHILS % (AUTO) 63.4 % (42-78); TOTAL CELLS COUNTED % (AUTO) 100 %; WHITE BLOOD COUNT 5.9 10^3/uL (4.0-10.5)
[2018-08-06] MEDS ORDERED: LIDOCAINE 1% INJ-PF (10 MG/ML) 30 ML SDV ONE (15:43)
[2018-08-06] MEDS ORDERED: METRONIDAZOLE 500 MG TABLET PO ONE (15:45)
[2018-08-06 15:58] LABS: ALANINE AMINOTRANSFERASE 19 U/L (9-52); ALBUMIN 4.4 g/dL (3.5-5.0); ALKALINE PHOSPHATASE 52 U/L (38-126); ANION GAP 9 (5-19); ASPARTATE AMINO TRANSFERASE 19 U/L (14-36); BILIRUBIN,DIRECT 0.2 mg/dL (0.0-0.4); BILIRUBIN,TOTAL 0.6 mg/dL (0.2-1.3); BLOOD UREA NITROGEN 7 mg/dL (7-20); CALCIUM 9.3 mg/dL (8.4-10.2); CARBON DIOXIDE 25 mmol/L (22-30); CHLORIDE 108 mmol/L (98-107); GLUCOSE 79 mg/dL (75-110); POTASSIUM 3.9 mmol/L (3.6-5.0); SODIUM 141.8 mmol/L (137-145); TOTAL PROTEIN 7.2 g/dL (6.3-8.2)
[2018-08-06] MEDS ORDERED: LEVONORGESTREL 1.5 MG TABLET (1 TAB/ER-USE) PO ONE (16:00)
[2018-08-06] MEDS ORDERED: HEPATITIS B VIRUS VACCINE-PF 0.5 ML VIAL IM ONE ×2 (16:00→16:02)
[2018-08-06] MEDS ORDERED: EMTRICITABINE/TENOFOVIR 200-300 MG TAB (3 TAB/ER DISP) PO PRN (16:05)
[2018-08-06 16:36] VITALS: BP 128/79
[2018-08-06 19:41] LABS: T.VAGINALIS (WET MOUNT) NO TRICHOMONAS SEEN; YEAST (WET MOUNT) NO YEAST SEEN
[2018-08-06 19:42] LABS: BACTERIA (WET MOUNT) 3+ BACTERIA SEEN; EPITHELIALS (WET MOUNT) 3+ EPITHELIALS SEEN; RBCS (WET MOUNT) FEW RBCS SEEN; WBCS (WET MOUNT) 2+ WBCS SEEN
[2018-08-06 21:08] LABS: CHLAM PCR NOT DETECTED (NOT DETECT); GON PCR NOT DETECTED (NOT DETECT)
[2018-08-07] MEDS ORDERED: LIDOCAINE HCL 1% INJ (FOR 250 MG VIAL) INJ SCH (10:00)
[2018-08-07] MEDS ORDERED: CEFTRIAXONE INJ 250 MG VIAL IM SCH (10:00)
[2018-08-08 06:39] LABS: HEPATITIS A AB IGM Negative (Negative); HEPATITIS B CORE AB IGM Negative (Negative); HEPATITS B SURFACE ANTIGEN Negative (Negative)
[2018-08-08 07:10] LABS: HEPATITIS C VIRUS ANTIBODY <0.1 s/co ratio (0.0-0.9)
== END 2018-08-06 16:45 | disposition home or self-care (01) ==
LOC: ER 11:53
DX: T74.21XA Adult sexual abuse, confirmed, initial encounter (principal); S40.022A Contusion of left upper arm, initial encounter; Y07.59 Other non-family member, perpetrator of maltreatment and neglect; R68.84 Jaw pain; M54.2 Cervicalgia; J45.909 Unspecified asthma, uncomplicated; Z23 Encounter for immunization
CPT/HCPCS: 99285; 36415; 87210; 85025; 81025; 86592; 80053; 87491; 87591; 80074; 90746; A9270; J3490; Q0144; J0696